=== PATIENT | female | born 1945 | race Caucasian/White ===

== ENCOUNTER 2020-04-26 11:29 | Emergency (ER) | payer MEDICARE, OTHER ==
[2020-04-26] MEDS ORDERED: PREDNISONE 20 MG TABLET PO ONE (12:34)
[2020-04-26] MEDS ORDERED: VALACYCLOVIR HCL 500 MG TABLET PO ONE (12:34)
[2020-04-26 12:55] VITALS: BP 137/78
--- NOTE | 2020-04-26 13:36 | ER Document Report ---
Entered by JEY CAMPBELL SCRIBE 04/26/20 1221 Acting as scribe for:AGUSTIN BLACKMAN MD ED General - General Chief Complaint: Facial Droop Stated Complaint: FACIAL DROOP,FACIAL SWELLING Time Seen by Provider: 04/26/20 12:09 Primary Care Provider: DENNIS LEON MD [Primary Care Provider] - Follow up as needed Mode of Arrival: Ambulatory Information source: Patient Notes: This 74 year old female patient presents to the ED today with complaints of waking up with left-sided facial droop around 0830 yesterday morning. Denies numbness/tingling or headache. Denies history of stroke. TRAVEL OUTSIDE OF THE [place] IN LAST 30 DAYS: No - Related Data Allergies/Adverse Reactions: adhesive tape Allergy (Verified 04/26/20 12:31) cayenne Allergy (Verified 04/26/20 12:31) qing Allergy (Verified 04/26/20 12:31) Past Medical History - General Information source: Patient, [facility] Records - Social History Smoking Status: Never Smoker Cigarette use (# per day): No Chew tobacco use (# tins/day): No Smoking Education Provided: No Frequency of alcohol use: None Drug Abuse: None Family History: Reviewed & Not Pertinent - Past Medical History Cardiac Medical History: Reports: Hx Hypercholesterolemia, Hx Hypertension GI Medical History: Reports: Hx Gastroesophageal Reflux Disease Psychiatric Medical History: Reports: Hx Anxiety Past Surgical History: Reports: Hx Cholecystectomy Review of Systems - Review of Systems Constitutional: No symptoms reported EENT: No symptoms reported Cardiovascular: No symptoms reported Respiratory: No symptoms reported Gastrointestinal: No symptoms reported Genitourinary: No symptoms reported Female Genitourinary: No symptoms reported Musculoskeletal: No symptoms reported Skin: No symptoms reported Hematologic/Lymphatic: No symptoms reported Neurological/Psychological: See HPI -: Yes All other systems reviewed and negative Physical Exam - Vital signs Vitals: Resp Pulse Ox 15 95 04/26/20 11:54 04/26/20 11:54 - General General appearance: Alert In distress: None - HEENT Head: Normocephalic, Atraumatic Eyes: Normal Pupils: PERRL - Respiratory Respiratory status: No respiratory distress Chest status: Nontender Breath sounds: Normal Chest palpation: Normal - Cardiovascular Rhythm: Regular Heart sounds: Normal auscultation Murmur: No Friction rub: No Gallop: None auscultated - Abdominal Inspection: Normal Distension: No distension Bowel sounds: Normal Tenderness: Nontender - Abdomen soft Organomegaly: No organomegaly - Back Back: Normal, Nontender - Extremities General upper extremity: Normal inspection General lower extremity: Normal inspection. No: Edema - Neurological Notes: There is obvious left-sided facial weakness. Speech is mildly slurred. She can stick out her tongue to the right. She cannot close her left eye completely or raise her left eyebrow. There are no other motor deficits. - Psychological Associated symptoms: Normal affect, Normal mood - Skin Skin Temperature: Warm Skin Moisture: Dry Skin Color: Normal Course - Vital Signs Vital signs: Temp Pulse Resp BP Pulse Ox 71 18 137/78 H 95 04/26/20 12:25 04/26/20 12:46 04/26/20 12:46 04/26/20 12:46 Discharge - Discharge Clinical Impression: Steiner's palsy Condition: Stable Disposition: HOME, SELF-CARE Additional Instructions: [place]' Palsy You have been diagnosed as having Steiner's Palsy -- a paralysis of certain muscles of the face. It's caused by a temporary paralysis of the nerve which controls the muscles. The cause is unknown, but it's thought to be caused by a virus in most cases. The physician's exam shows that this is NOT a stroke. Steiner's Palsy usually gets better by itself. There is no cure. Sometimes cortisone-type medication is given to decrease nerve swelling. This problem is usually temporary, lasting about three weeks. During that time, you must protect the eye from injury (because the eyelid muscles often do not cover it). Ointment or a patch may be necessary. Be sure to follow up as instructed, and call the doctor at once if new symptoms arise. Report any eye pain, decreasing vision or double vision, or any numbness or weakness outside the face area. Take medication as prescribed. Start the prednisone tomorrow, you given today's dose here in the emergency room. Start the Valtrex later today, get 2 doses then before bedtime. Use our waiting solutions and Lacri-Lube ointment to keep the eye wet. Tape your eye closed when you are sleeping. Follow-up with Dr. Leon in one week for recheck. RETURN TO THE EMERGENCY ROOM IF ANY NEW OR WORSENING SYMPTOMS. Prescriptions: Prednisone [Deltasone 20 mg Tablet] 20 mg PO TID #18 tablet Valacyclovir HCl [Valtrex] 1,000 mg PO TID #20 dose Referrals: DENNIS LEON MD [Primary Care Provider] - Follow up as needed I personally performed the services described in the documentation, reviewed and edited the documentation which was dictated to the scribe in my presence, and it accurately records my words and actions.
== END 2020-04-26 12:59 | disposition home or self-care (01) ==
LOC: ER 11:29
DX: G51.0 Bell's palsy (principal); I10 Essential (primary) hypertension; Z91.048 Other nonmedicinal substance allergy status; Z91.018 Allergy to other foods
CPT/HCPCS: 99283; A9270 ×2; J7512